=== PATIENT | female | born 1960 | race Caucasian/White ===

== ENCOUNTER 2021-01-25 06:12 | Day surgery (SDC) | payer OTHER ==
[~2021-01-25 06:12] MED LIST: NARDIL15 MG; NEURONTIN300 MG PO; PERCOCET 5/3251 TAB PO; POLY119PG PO; ZOLOFT PO
== END 2021-01-25 16:30 | disposition home or self-care (01) ==
LOC: CIR.AMB 06:12
PROVIDERS: ATTEND Obstetrics & Gynecology
DX: N84.0 Polyp of corpus uteri (principal); Z20.822 Contact with and (suspected) exposure to COVID-19

== ENCOUNTER 2024-08-19 10:51 | Outpatient (CLI) | payer OTHER | END 2024-08-19 10:52 | disposition home or self-care (01) | LOC: SONOGRAMA 10:51 | PROVIDERS: ATTEND Pathology Anatomic Pathology & Clinical Pathology | DX: D34 Benign neoplasm of thyroid gland (principal); E07.89 Other specified disorders of thyroid; E04.2 Nontoxic multinodular goiter ==